=== PATIENT | female | born 1975 | race Hispanic/Latino ===

== ENCOUNTER 2016-04-24 14:22 | Emergency (ER) | payer OTHER, MEDICARE ==
[2016-04-24 19:25] VITALS: BP 110/81
[2016-04-24] MEDS ORDERED: PERCOCET 5/325 PO ONE (19:36)
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
--- NOTE | 2016-04-24 20:06 | XRay Report ---
FINAL REPORT PROCEDURE: XR HIP 2-3V RT TECHNIQUE: RIGHT hip radiographs, 2 views each, including AP view of the pelvis. HISTORY: rt hip pain/trauma COMPARISON: No prior studies are available for comparison. FINDINGS: No acute fracture or dislocation is seen. Hip joints are symmetric in appearance. There may be mild osteitis pubis. IMPRESSION: No acute fracture is identified
--- NOTE | 2016-04-24 20:08 | XRay Report ---
FINAL REPORT PROCEDURE: XR WRIST 3 RT TECHNIQUE: Right wrist, three views HISTORY: rt wrist pain/trauma COMPARISON: No prior studies are available for comparison. FINDINGS: No acute fracture or dislocation is seen. No focal osseous lesions are identified. No radiopaque foreign body is seen. IMPRESSION: No acute fracture or dislocation is identified
--- NOTE | 2016-04-24 20:08 | XRay Report ---
FINAL REPORT PROCEDURE: XR FOREARM RT TECHNIQUE: Right forearm, two views HISTORY: rt forearm pain/trauma COMPARISON: No prior studies are available for comparison. FINDINGS: No acute fracture or dislocation is identified. No focal osseous lesion is seen. No radiopaque foreign body is seen. IMPRESSION: No acute fracture or dislocation is identified
--- NOTE | 2016-04-24 20:12 | XRay Report ---
FINAL REPORT PROCEDURE: XR SPINE CERVICAL 2-3V TECHNIQUE: Cervical spine radiographs, minimum of four views, including AP, lateral and bilateral oblique projections. HISTORY: cervical pain/trauma COMPARISON: No prior studies are available for comparison. FINDINGS: Postsurgical changes at C5-6. Vertebral body heights and alignment are maintained. The cervicothoracic junction is not well-visualized due to overlying structures. There are degenerative disc changes at C4-5, with disc space narrowing and anterior osteophyte formation. The prevertebral soft tissues are within normal limits in thickness. The tip of the odontoid is obscured by overlying structures. The odontoid base appears intact. IMPRESSION: No acute abnormality is seen, with limitations as above
== END 2016-04-24 20:47 | disposition home or self-care (01) ==
LOC: ED 14:22
DX: S16.1XXA Strain of muscle, fascia and tendon at neck level, initial encounter (principal); M25.50 Pain in unspecified joint; G89.29 Other chronic pain; F17.200 Nicotine dependence, unspecified, uncomplicated; Z90.710 Acquired absence of both cervix and uterus; Z90.49 Acquired absence of other specified parts of digestive tract; Z88.8 Allergy status to other drugs, medicaments and biological substances; V49.49XA Driver injured in collision with other motor vehicles in traffic accident, initial encounter; Y93.89 Activity, other specified; Y99.8 Other external cause status; Y92.89 Other specified places as the place of occurrence of the external cause
CPT/HCPCS: 72040; 99283